=== PATIENT | male | born 1995 | race Hispanic/Latino ===

== ENCOUNTER 2020-12-08 18:32 | Emergency (ER) | payer OTHER, SELFPAY ==
[2020-12-08] MEDS ORDERED: Ibuprofen 800 MG TAB ONE (19:37)
[2020-12-08] MEDS ORDERED: Boostrix 0.5 ML (Tdap) VIAL ONE (19:38)
[2020-12-08] MEDS ORDERED: Bacitracin 1 PK ONE (19:39)
== END 2020-12-08 19:56 | disposition home or self-care (01) ==
LOC: ERS 18:32
DX: S61.011A Laceration without foreign body of right thumb without damage to nail, initial encounter (principal); X58.XXXA Exposure to other specified factors, initial encounter
CPT/HCPCS: 90471; 90715